=== PATIENT | female | born 1955 | race Caucasian/White ===

== ENCOUNTER 2019-06-23 01:10 | Emergency (ER) | payer BC, OTHER ==
[2019-06-23 01:22] VITALS: BP 144/91; PULSE 90
[2019-06-23] MEDS ORDERED: Cephalexin 500 MG Cap PO ONE (01:22)
--- NOTE | 2019-06-23 01:26 | EDM.PDOC ---
ED HPI GENERAL MEDICAL PROBLEM - General Chief Complaint: Genitourinary Problem Stated Complaint: POSSIBLE UTI Time Seen by Provider: 06/23/19 01:18 Source of Information: Reports: Patient History Limitations: Reports: No Limitations - History of Present Illness INITIAL COMMENTS - FREE TEXT/NARRATIVE: The patient presents with a UTI. She said this started yesterday with burning and frequency. It got worse tonight and she took an AZO but that did not help. She has had these before. She has no fever, chills, cough, congestion, runny nose, chest pain, shortness of breath, abdominal pain, nausea or vomiting. Onset: Gradual Duration: Day(s): Severity: Moderate Improves with: Reports: None Worsens with: Reports: None Associated Symptoms: Denies: Chest Pain, Cough, Fever/Chills, Headaches, Nausea/ Vomiting, Shortness of Breath Lower Abdomen Pain Score (Numeric/FACES): 5 - Related Data Allergies Allergy/AdvReac Type Severity Reaction Status Date / Time No Known Allergies Allergy Verified 06/23/19 01:22 Home Meds: Home Meds cephALEXin [Keflex] 500 mg PO BID #10 capsule 06/23/19 [Rx] Past Medical History HEENT History: Reports: Impaired Vision CROZER History: Reports: - Past Surgical History HEENT Surgical History: Reports: Tonsillectomy ED ROS GENERAL - Review of Systems Review Of Systems: See Below Constitutional: Reports: No Symptoms HEENT: Reports: No Symptoms Respiratory: Reports: No Symptoms Cardiovascular: Reports: No Symptoms Endocrine: Reports: No Symptoms GI/Abdominal: Reports: No Symptoms : Reports: Dysuria, Frequency, Urgency ED EXAM, RENAL/ - Physical Exam Exam: See Below Exam Limited By: No Limitations General Appearance: Alert, No Apparent Distress Ears: Normal External Exam Nose: Normal Inspection Head: Atraumatic, Normocephalic Neck: Normal Inspection Respiratory/Chest: No Respiratory Distress, Lungs Clear, Normal Breath Sounds Cardiovascular: Regular Rate, Rhythm, No Edema, No Murmur GI/Abdominal: Soft, Non-Tender, No Organomegaly, No Mass Course - Vital Signs Last Recorded V/S: Last Vital Signs Temp 97.9 F 06/23/19 01:16 Pulse 90 06/23/19 01:16 Resp 18 06/23/19 01:16 BP 144/91 H 06/23/19 01:16 Pulse Ox 95 06/23/19 01:16 - Orders/Labs/Meds Orders: Active Orders 24 hr Category Date Time Status UA W/MICROSCOPIC [URIN] Stat Lab 06/23/19 01:31 Results Labs: Laboratory Tests 06/23/19 Range/Units 01:31 Urine Color Inge H (Yellow) Urine Appearance Clear (Clear) Urine pH 6.0 (5.0-8.0) Ur Specific [place] 1.010 (1.005-1.030) Urine Protein 1+ H (Negative) Urine Glucose (UA) Negative (Negative) Urine Ketones Negative (Negative) Urine Occult Blood 3+ H (Negative) Urine Nitrite Positive H (Negative) Urine Bilirubin Negative (Negative) Urine Urobilinogen 0.2 (0.2-1.0) Ur Leukocyte Esterase 3+ H (Negative) Meds: Medications Discontinued Medications Generic Name Dose Route Start Last Admin Trade Name Freq PRN Reason Stop Dose Admin Cephalexin 500 mg 06/23/19 01:22 06/23/19 01:34 Keflex PO 06/23/19 01:23 500 mg ONETIME ONE Administration - Re-Assessments/Exams Free Text/Narrative Re-Assessment/Exam: 06/23/19 01:25 I ordered a UA and keflex. 06/23/19 01:44 Her UA confirms the UTI. I will discharge her home on keflex. Departure - Departure Time of Disposition: 01:45 Disposition: Home, Self-Care 01 Condition: Good Clinical Impression: UTI, Urinary tract infectious disease - Discharge Information *PRESCRIPTION DRUG MONITORING PROGRAM REVIEWED*: Not Applicable *COPY OF PRESCRIPTION DRUG MONITORING REPORT IN PATIENT SHAWANDA: Not Applicable Prescriptions: cephALEXin [Keflex] 500 mg PO BID #10 capsule Referrals: Lisbet Matta MD [Primary Care Provider] - Forms: ED Department Discharge Additional Instructions: Drink plenty of fluids. Take the keflex 2 times per day for 5 days. Take tylenol or motrin for any pain. Please return if you are worse. Sepsis Event Note - Evaluation Sepsis Screening Result: No Definite Risk - Focused Exam Vital Signs: Vital Signs Temp Pulse Resp BP Pulse Ox 06/23/19 01:16 97.9 F 90 18 144/91 H 95 Date Exam was Performed: 06/23/19 Time Exam was Performed: 01:44 - My Orders Last 24 Hours: My Active Orders 06/23/19 01:31 UA W/MICROSCOPIC [URIN] Stat - Assessment/Plan Last 24 Hours: My Active Orders 06/23/19 01:31 UA W/MICROSCOPIC [URIN] Stat
== END 2019-06-23 01:52 | disposition home or self-care (01) ==
LOC: JD.ED 01:10
DX: N39.0 Urinary tract infection, site not specified (principal)
CPT/HCPCS: 81001; 99283; A9270

== ENCOUNTER 2021-12-31 21:19 | Emergency (ER) | payer MEDICARE, BC ==
[2022-01-01 01:46] VITALS: BP 153/78; PULSE 71
== END 2022-01-01 01:40 | disposition home or self-care (01) ==
LOC: JD.ED 21:19
DX: M25.511 Pain in right shoulder (principal); M25.512 Pain in left shoulder; M54.6 Pain in thoracic spine; M06.9 Rheumatoid arthritis, unspecified
CPT/HCPCS: 36415; 72072; 72072-26; 730302650; 73030-50; 80053; 84484; 85007; 85027; 85652; 86140; 93005; 99284

== ENCOUNTER 2022-02-18 14:09 | Emergency (ER) | payer MEDICARE, BC ==
[2022-02-18 14:43] VITALS: BP 150/82; PULSE 87
== END 2022-02-18 15:36 | disposition home or self-care (01) ==
LOC: JD.ED 14:09
DX: N39.0 Urinary tract infection, site not specified (principal)
CPT/HCPCS: 81001; 87086; 99283

== ENCOUNTER → 2022-10-02 | Day surgery (SDC) | payer MEDICARE, BC ==
[~2022-10-02] MED LIST: Bupivacaine 0.5%/EPINEPHrine 1:200,000 50 ML MDV ONE; HYDROmorphone 0.5 MG/0.5 ML Syringe IVPUSH PRN; Lactated Ringers 1,000 ML IV SCH; Lidocaine 1% 2 ML ONE; Midazolam 1 MG/ML 2 ML SDV ONE; Ondansetron 4 MG/2 ML SDV IVPUSH PRN; Propofol 200 MG/20 ML SDV ONE; Sodium Chloride 0.9% 10 ML Syringe FLUSH PRN; Sodium Chloride 0.9% 10 ML Syringe FLUSH SCH; fentaNYL 100 MCG/2 ML SDV IVPUSH PRN; fentaNYL 100 MCG/2 ML SDV ONE
[2022-10-02 10:31] VITALS: BP 113/62; PULSE 85
== END | disposition home or self-care (01) ==
LOC: JD.SDS 07:58
PROVIDERS: ATTEND Obstetrics & Gynecology
DX: N84.0 Polyp of corpus uteri (principal); F41.1 Generalized anxiety disorder; K21.9 Gastro-esophageal reflux disease without esophagitis; M81.0 Age-related osteoporosis without current pathological fracture; G47.30 Sleep apnea, unspecified; Z79.899 Other long term (current) drug therapy; E78.00 Pure hypercholesterolemia, unspecified
CPT/HCPCS: 58120; J2250; J2704; J3010; J3490; J7120; 00940

== ENCOUNTER 2022-11-12 06:14 | Day surgery (SDC) | payer MEDICARE, BC ==
[~2022-11-12 06:14] MED LIST changes: -Bupivacaine 0.5%/EPINEPHrine 1:200,000 50 ML MDV ONE; -HYDROmorphone 0.5 MG/0.5 ML Syringe IVPUSH PRN; -Lidocaine 1% 2 ML ONE; -Midazolam 1 MG/ML 2 ML SDV ONE; -Propofol 200 MG/20 ML SDV ONE; -fentaNYL 100 MCG/2 ML SDV ONE
[2022-11-12] MEDS ORDERED: fentaNYL 100 MCG/2 ML SDV ONE (06:16)
[2022-11-12] MEDS ORDERED: Midazolam 1 MG/ML 2 ML SDV ONE (06:16)
[2022-11-12] MEDS ORDERED: Lidocaine 1% 2 ML ONE (06:16)
[2022-11-12] MEDS ORDERED: Propofol 200 MG/20 ML SDV ONE (06:17)
[2022-11-12] MEDS ORDERED: Bupivacaine 0.25% 10 ML SDV ONE (06:21)
[2022-11-12] MEDS ORDERED: Lidocaine 1% 10 ML MDV ONE (06:21)
[2022-11-12] MEDS ORDERED: Triamcinolone Acetonide 40 MG/ML 1 ML SDV ONE (06:21)
[2022-11-12 09:07] VITALS: BP 126/67; PULSE 55
== END 2022-11-12 08:11 | disposition home or self-care (01) ==
LOC: JD.SDS 06:14
PROVIDERS: ATTEND Orthopaedic Surgery
DX: M65.312 Trigger thumb, left thumb (principal); M65.311 Trigger thumb, right thumb; F41.9 Anxiety disorder, unspecified; K21.9 Gastro-esophageal reflux disease without esophagitis; M81.0 Age-related osteoporosis without current pathological fracture; G47.33 Obstructive sleep apnea (adult) (pediatric); E78.00 Pure hypercholesterolemia, unspecified; Z91.048 Other nonmedicinal substance allergy status; Z86.16 Personal history of COVID-19; Z79.899 Other long term (current) drug therapy; Z98.890 Other specified postprocedural states
CPT/HCPCS: 20605; 26055; J2250; J2704; J3010; J3301; J3490; J7120; 01810